=== PATIENT | male | born 1975 | race Caucasian/White ===

== ENCOUNTER 2016-11-17 10:45 | Emergency (ER) | payer OTHER ==
[2016-11-17 10:49] VITALS: BMI 25.7
[2016-11-17] MEDS ORDERED: ADACEL TDaP IM ONE ×2 (11:03)
--- NOTE | 2016-11-17 11:03 | DR.GENAD ---
HPI - PCP Primary Care Physician: COLE TAYLOR - HPI Comment HPI Comment: LACERATION [id number] AND 4TH FINGERS. TD NOT UTD. - Complaint/Symptoms Chief Complaint Doctors Comments: CUT FINGERS ON PAENUT CUTTER. Chief Complaint:: "CUT RIGHT TWO MIDDLE FINGER WITH A PEANUT CUTTER" - Nurses notes reviewed Nurses Notes Review: Yes - Source History Provided: Patient - Mode of Arrival Mode of Arrival: Ambulatory - Timing Onset of Chief Complaint: 11/17/16 Came on: Suddenly - Duration Duration: Constant Duration: Hours - Severity Severity: Moderate PMH - PMH Past Medical History: Yes Past Medical History: Hypertension Past Surgical History: No - Family History History of Family Medical Conditions: No - Social History Does patient currently use any type of tobacco product: No Have you used tobacco products in the last 12 months: No Type of Tobacco Use: None Does any household member use tobacco: No Alcohol Use: None Do you use any recreational Drugs:: No Lives With: Family Lives Where: Home - infectious screening In the last 2 months have you had wt loss of >10#?: NO Have you had fever, night sweats or hemotysis?: No Have you traveled outside the country in the last 6 months?: No Isolation: Standard ROS - Review of Systems Constitutional: No Symptoms Reported Eyes: No Symptoms Reported ENTM: No Symptoms Reported Respiratoy: No Symptoms Reported Cardiovascular: No Symptoms Reported Gastrointestinal/Abdominal: No Symptoms Reported Genitourinary: No Symptoms Reported Neurological: No Symptoms Reported Musculoskeletal: Right, Hand (LACERATION 3RD AND 4TH FINGERS 3CM, 2CM ON RIGHT 4TH FINGER AND 3CM, 2CM ON RT 3RD FINGER.) Integumentary: Change in Color, Wound (FINGER LACERATION.) Endocrine: No Symptoms Reported All Other Systems: Reviewed and Negative PE - Vital Signs Vitals: Temperature 98.1 F Pulse Rate [Right Brachial] 88 Pulse Rate 88 Respiratory Rate 18 Blood Pressure [Left Arm] 154/86 Blood Pressure 142/98 O2 Sat by Pulse Oximetry 100 - General Limitations: No Limitations General Appearance: Alert - Head Head Exam: Normal Inspection - Eyes Eye exam: Normal Appearance - ENT ENT Exam: Normal External Ear Exam External Ear Exam: Normal External Inspection TM/Canal Exam: Bilateral Normal Throat Exam: Normal Inspection - Neck Neck Exam: Trachea Midline - Chest Chest Inspection: Symmetric Chest Wall Rise - Respiratory Respiratory Exam: Normal Lung Sounds Bilat Respiratory Exam: Bilateral Clear to Auscultation - Cardiovascular Cardiovascular Exam: Regular Rate, Normal Rhythm, Normal Heart Sounds - Abdominal Exam Abdominal Exam: Normal Bowel Sounds, Soft. negative: Tenderness - Extremities Extremities Exam: Other (LACERATION 3RD AND 4TH FINGERS.) - Back Back Exam: Normal Inspection - Neurologic Neurological Exam: Alert - Psychiatric Psychiatric Exam: Normal Affect, Normal Mood - Skin Skin Exam: Erythema, Other (FINGER LACERATION.) [facility] - Additional Information Additional Information Obtained From: Family - Differential Diagnosis Differential Diagnosis: FINGER LACERATION, FINGER CONTUSION. Course - Treatment Treatment: SEE ORDERS. LACERATION CLOSE IN ED. - Education/Counseling Education/Counseling: Patient, Family, Education Educated On: Treatment, Diagnosis, Needs for Follow Up Procedures - Laceration/Wound Repair Right 3rd Digit Wound Length (cm): 5 (3CM AND 2CM ON TIP OF FINGER) Wound's Depth, Shape: Linear Wound Explored: clean Betadine Prep?: Yes Anesthesia: 1% Lidocaine Wound Debrided: minimal Wound Repaired With: sutures Suture Size/Type: 4:0, Ethilion Number of Sutures: 11 Layer Closure?: No Sterile Dressing Applied?: Yes Splint Applied?: No Sling Applied?: No Right 4th Digit Wound Length (cm): 5 (3CM AND 2 CMM TIP FINGER LAC.) Wound's Depth, Shape: Linear Wound Explored: clean Betadine Prep?: Yes Anesthesia: 1% Lidocaine Wound Debrided: minimal Wound Repaired With: sutures Suture Size/Type: 4:0, [place]ilion Number of Sutures: 11 Layer Closure?: No Sterile Dressing Applied?: Yes Splint Applied?: No Sling Applied?: No - Diagnosis Discharge Problem: Finger laceration Qualifiers: Encounter type: initial encounter Finger: ring finger Damage to nail status: with damage Foreign body presence: without foreign body Laterality: right Qualified Code(s): S61.314A - Laceration without foreign body of right ring finger with damage to nail, initial encounter Contusion of finger Qualifiers: Encounter type: initial encounter Finger: middle finger Damage to nail status: without damage - Discharge Plan Disposition: 01 HOME, SELF-CARE Condition: Stable Prescriptions: Cephalexin [KEFLEX CAP 500 MG *] 500 mg PO TID #30 cap Ibuprofen [MOTRIN TAB 600 MG *] 600 mg PO TID PRN #20 tab PRN Reason: Pain/Inflammation Tramadol HCl 50 mg PO Q8H PRN 15 Days tablet PRN Reason: - Follow ups/Referrals Follow ups/Referrals: COLE TAYLOR [Primary Care Provider] - 3 days - Instructions Instructions: Laceration Care, Adult, [id number] Additional Instructions: RETURN TO ED IF WORSE. SUTURE OUT IN 10 DAYS
[2016-11-17] MEDS ORDERED: HYDROGEN PEROXIDE 3% ONE (11:21)
[2016-11-17 11:54] VITALS: BP 154/86
[2016-11-17] MEDS ORDERED: NEOSPORIN OINT ONE (11:54)
[2016-11-17] MEDS ORDERED: BACITRACIN ZINC ONE (11:54)
== END 2016-11-17 12:08 | disposition home or self-care (01) ==
LOC: ER 10:52
PROC: 0XQQ0ZZ Repair Right Middle Finger, Open Approach (ICD-10-PCS; principal; 2016-11-17)
DX: S61.314A Laceration without foreign body of right ring finger with damage to nail, initial encounter (principal); S60.031A Contusion of right middle finger without damage to nail, initial encounter; W45.8XXA Other foreign body or object entering through skin, initial encounter
CPT/HCPCS: 12004; 90471; 99282